=== PATIENT | female | born 1965 | race Caucasian/White ===

== ENCOUNTER → 2021-10-18 | Outpatient (CLI) | payer BC ==
[~2021-10-18] MED LIST: GADOBENATE DIMEGLUMINE 1 ML IV ONE; LORAZEPAM INJ 2 MG/ML VIAL ONE; NAPROXEN500 MG PO; ULTRAM 50MG50 MG PO; VELTIN GEL30 GM TOP
[2021-10-18 14:47] LABS: CREATININE, SERUM 0.77 mg/dL (0.57-1.11)
== END ==
LOC: MRI 13:06
PROVIDERS: ATTEND Physician Assistant
DX: M54.2 Cervicalgia (principal); Z85.3 Personal history of malignant neoplasm of breast; Z85.850 Personal history of malignant neoplasm of thyroid; Z85.819 Personal history of malignant neoplasm of unspecified site of lip, oral cavity, and pharynx
CPT/HCPCS: 36415; 72156; 82565; 84520; J2060